=== PATIENT | female | born 2000 | race Caucasian/White ===

== ENCOUNTER → 2024-04-10 | Outpatient (CLI) | payer BC ==
--- NOTE | 2024-04-10 14:57 | US ---
EXAMINATION TYPE: Transabdominal DATE OF EXAM: 04/10/2024 2:43 PM COMPARISON: NONE CLINICAL INDICATION: Female, 23 years old with history of O46.91 BLEEDING; Spotting x 1 week with hea vy bleeding / clotting x 4 days with generalized pelvic pain TECHNIQUE: Transvaginal (TV) and Transabdominal (TA) with grayscale and color Doppler imaging includi ng first trimester . FINDINGS: EXAM MEASUREMENTS: GESTATIONAL AGE / DATING Physician Established: Not yet established ( weeks/ days) EDC: Dates by LMP: (6 weeks/4 days) EDC: Dates by First Scan: No previous this is first scan ( weeks/ days) EDC: Dates by Current Scan for: ( weeks/ days) EDC: MATERNAL ANATOMY Uterus: 7.8 x 3.9 x 4.4 cm; Endo = 1.0 Right Ovary: 4.0 x 1.9 x 2.7 cm Left Ovary: 2.9 x 1.4 x 2.0 Post CDS / Adnexa: Fluid seen in cul de sac Presence of free fluid: Cul de sac Presence of corpus luteal cyst: Right ovary Presence of subchorionic bleed: No GESTATION / SURVEY No viable seen Date of LMP: 02/24/2024 Beta HcG (if available): Not available at this time IMPRESSION: No evidence of intrauterine gestational sac, correlate with B-hCG. If positive, this could represent early , ectopic or spontaneous . Follow up pelvic ultrasound in 5-7 days a nd serial beta hCG studies are recommended. [facility], , 04/10/2024 2:54 PM
== END | disposition home or self-care (01) ==
LOC: RADUSWWP 14:22
PROVIDERS: ATTEND Obstetrics & Gynecology
DX: O46.91 Antepartum hemorrhage, unspecified, first trimester (principal); N83.11 Corpus luteum cyst of right ovary; O34.81 Maternal care for other abnormalities of pelvic organs, first trimester; Z3A.08 8 weeks gestation of pregnancy
CPT/HCPCS: 76801; 76817

== ENCOUNTER → 2024-04-26 | Outpatient (CLI) | payer BC ==
[2024-04-26 09:57] LABS: HCG,Quantitative Serum 1650.1 mIU/mL
== END | disposition home or self-care (01) ==
LOC: LABWHC1 08:47
PROVIDERS: ATTEND Obstetrics & Gynecology
DX: O00.80 Other ectopic pregnancy without intrauterine pregnancy (principal)
CPT/HCPCS: 36415; 84450; 84460; 84702

== ENCOUNTER → 2024-04-26 | Outpatient (CLI) | payer BC ==
[2024-04-26 09:24] VITALS: BP 115/77; PULSE 76; RESP 16; TEMP 97.8
[2024-04-26] MEDS: METHOTREXATE SODIUM (PF) 25 MG/ML 2 ML VIAL IM NR (09:50)
== END ==
LOC: PROCWHC3 09:06
PROVIDERS: ATTEND Obstetrics & Gynecology
DX: O00.90 Unspecified ectopic pregnancy without intrauterine pregnancy (principal)
CPT/HCPCS: 96402; J9260